=== PATIENT | female | born 1950 | race Caucasian/White ===

== ENCOUNTER 2019-10-16 08:57 | Outpatient (CLI) | payer OTHER, SELFPAY ==
--- NOTE | ~2019-10-16 | US_ITS ---
EXAMINATION: US renal BI EXAM DATE: 10/16/2019 11:18 INDICATION: Uncontrolled hypertension. TECHNIQUE: Multiple grayscale and Doppler images of the kidneys were obtained (by a technologist who performed the scan) and subsequently reviewed. There is no prior study for comparison. FINDINGS: Right kidney: There is normal contour and echogenicity. Measurement obtained not likely accurate due to inclusion of perinephric hypoechoic region which is probably perinephric fat surrounding mildly at rophic kidney. There are no focal renal lesions identified. There is no hydronephrosis. Left kidney: There is normal contour and echogenicity. It measures 13.4 x 5.9 x 5.4 centimeters. Th ere are no focal renal lesions identified. There is no hydronephrosis. Bladder unremarkable. IMPRESSION: 1. Mild right renal atrophy. Reviewed, dictated and finalized at location B.
--- NOTE | ~2019-10-16 | US_ITS ---
EXAMINATION: US retroperitoneal duplex ltd EXAM DATE: 10/16/2019 11:18 INDICATION: Uncontrolled hypertension. TECHNIQUE: Multiple grayscale and Doppler images of the kidneys and renal arteries were obtained. T here is no prior study for comparison. FINDINGS: The aorta peak systolic velocity is 47 cm/s. The right renal artery peak systolic velocity is 47 cm/s in the proximal segment, mid and distal aspects not visualized . The left renal artery peak systolic velocity is 102 cm/s in the distal segment, other segments not visualized. IMPRESSION: Some limitations from single measurement obtained in each renal artery, but both well wit hin normal limits. Reviewed, dictated and finalized at location B. IMPRESSION: Some limitations from single measurement obtained in each renal art cailin, but both well within normal limits.
== END 2019-10-16 08:58 | disposition home or self-care (01) ==
PROVIDERS: Visit Provider Internal Medicine Cardiovascular Disease
DX: E11.59 Type 2 diabetes mellitus with other circulatory complications (principal); I10 Essential (primary) hypertension; N26.1 Atrophy of kidney (terminal)
CPT/HCPCS: 76775; 93976

== ENCOUNTER 2022-02-23 14:13 | Outpatient (CLI) | payer OTHER, SELFPAY ==
--- NOTE | ~2022-02-23 | US_ITS ---
EXAMINATION: US art doppler w axel REAL DATE: 02/23/2022 15:33 INDICATION: Coronary artery disease of [place] artery of the heart. Claudication. TECHNIQUE: Segmental pressures and plethysmographic and Doppler waveforms of the brachial and lower e xtremity arteries were obtained. COMPARISON: None. FINDINGS: Right and left brachial artery pressures of 154 mm Hg and 169 mm Hg, respectively, are concordant (no rmal difference <= 30 mmHg). The right high thigh pressure index is 1.12 (normal > 1.2). The right ankle-brachial index (CHRIS) and right lower extremity segmental pressure gradients unable to be obtained due to inability to occlude the vessels distal to the high right thigh. The right great toe-brachial index (TBI) is 0.44 (normal >= 0.6-0.8). Arterial waveforms are biphasic with brisk systolic upstrokes throughout the arteries of the right lower limb. The left high thigh pressure index, left ankle-brachial index and segmental pressure gradients are al so unable to be obtained due to inability to occlude the vessels throughout the left lower limb. The left TBI is 0.74. Arterial waveforms are biphasic with brisk systolic upstrokes throughout the arteri es of the left lower limb. IMPRESSION: 1. 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 2. No significant arterial occlusive disease to the left lower limb with normal left TBI. Reviewed, dictated and finalized at location B. IMPRESSION: 1. Mild arterial occlusive disease to the right lower limb with mildly decrease d right TBI. 2. No significant arterial occlusive disease to the left lower limb with normal left TBI.
== END 2022-02-23 14:14 | disposition home or self-care (01) ==
PROVIDERS: Visit Provider Internal Medicine Cardiovascular Disease
DX: I73.9 Peripheral vascular disease, unspecified (principal); I25.118 Atherosclerotic heart disease of native coronary artery with other forms of angina pectoris
CPT/HCPCS: 93923

== ENCOUNTER 2022-10-01 13:12 | Outpatient (CLI) | payer OTHER, SELFPAY ==
--- NOTE | ~2022-10-01 | US_ITS ---
EXAMINATION: US carotid duplex BI DATE: 10/01/2022 17:11 INDICATION: Carotid bruits TECHNIQUE: Grayscale, color Doppler, and pulsed Doppler images of the cervical carotid arteries were obtained. The degree of vessel stenosis is placed in one of the following categories: normal, <50%, 5 0-69%, >=70% but less than near-occlusion, near-occlusion, or total occlusion. Note that percent sten osis relative to normal distal artery lumen diameter is indirectly measured from velocity measurement s as described by Jose David, et al. Radiology 2003; 229:340-346. Notes: Normal: Peak systolic velocity <125 centimeters/sec and no plaque <50%. Peak systolic velocity <125 ( EDV <40; ICA/CCA PSV ratio <2.0; used these factors only a tandem lesions or low cardiac output or co ntralateral disease) 50-69 %: PSV 125-230 (EDV 40-100; ratio 2-4) >= 70% but less than near occlusion: PSV greater than 230 (EDV > 100; ratio> 4.0) Near Occlusion: PSV that is variable; markedly narrowed lumen Occlusion: Absent flow on color/spectral Doppler and no lumen on wiggins scale. COMPARISON: None. FINDINGS: RIGHT: The right common carotid artery (CCA) peak systolic velocity (PSV) is 103 cm/s. The right internal ca rotid artery (ICA) PSV is 100 cm/s. The right ICA end-diastolic velocity (EDV) is 11 cm/s. The right ICA/CCA PSV ratio is 1.0. The external carotid artery (ECA) PSV is 227 cm/s. There is antegrade flow in the right vertebral artery. LEFT: The left CCA PSV is 112 cm/s. The left ICA PSV is 82 cm/s. The left ICA EDV is 16 cm/s. The left ICA/ CCA PSV ratio is 0.7. The ECA PSV is 217 cm/s. There is antegrade flow in the left vertebral artery. IMPRESSION: 1. Less than 50% stenosis in the right internal carotid artery by sonographic criteria. 2. Less than 50% stenosis in the left internal carotid artery by sonographic criteria. Reviewed, dictated and finalized at location L. IMPRESSION: 1. Less than 50% stenosis in the right internal carotid artery by sonographic carey whiteside. 2. Less than 50% stenosis in the left internal carotid artery by sonographic suad villatoro.
== END 2022-10-01 13:13 | disposition home or self-care (01) ==
PROVIDERS: Visit Provider Internal Medicine Cardiovascular Disease
DX: I65.23 Occlusion and stenosis of bilateral carotid arteries (principal); R09.89 Other specified symptoms and signs involving the circulatory and respiratory systems
CPT/HCPCS: 93880

== ENCOUNTER 2022-12-05 01:53 | Day surgery (SDC) | payer OTHER, SELFPAY ==
[2022-12-04 17:00] VITALS: BMI 43.1
[2022-12-05 07:52] VITALS: BP 140/54; PULSE 63; RESP 16; TEMP 36.4; O2SAT 96; BMI 43.1
--- NOTE | 2022-12-05 08:52 | WPDHPUPDATE1 ---
History and Physical Update Update Date/Time: 12/05/22 08:52 History and Physical has been reviewed, including an updated exam of the patient. There are NO changes in the patient's condition. Risks, benefits, and alternatives have been discussed and questions answered. Patient agrees to proceed with procedure.
[2022-12-05 08:55] VITALS: BP 141/48; PULSE 56; RESP 16; O2SAT 95
[2022-12-05 09:00] VITALS: BP 150/57; PULSE 57; RESP 16; O2SAT 97
[2022-12-05 09:05] VITALS: BP 152/59; PULSE 63; RESP 16; O2SAT 95
[2022-12-05 09:10] VITALS: BP 159/62; PULSE 68; RESP 18; O2SAT 95
--- NOTE | 2022-12-05 09:15 | P.OP_ITS ---
Procedure Note - Detailed Date of Procedure 12/05/22 Pre-op Diagnosis syncope Post-op Diagnosis Same Procedure Performed LOOP RECORDER IMPLANTATION Surgeon Mike Puentes MD Coremaking Machine Operator N/A Anesthesia Local Indications Recurrent syncope Findings Brief History of Present Illness: Patient is a very pleasant 71-year-old female with a past medical history significant for CAD with multiple prior stents and myocardial infarction, type 2 diabetes mellitus, hypertension, hyperlipidemia with recurrent unexplained syncope for which external digital watch assembler did not reveal significant tachy-jaspal arrhythmias nor did she have recurrent syncope during that time subsequently referred for loop recorder implantation for further evaluation. Description of Procedure After verbal and written informed consent was obtained from the patient risks, benefits, and alternatives explained in detail the patient agreed to proceed with the plan of care as outlined above. Patient was evaluated at bedside in the [facility] procedure room. Patient was placed the appropriate supine position. Left anterior chest wall was prepped and draped in the usual sterile fashion. Operators in appropriate sterile garb. The left 4th intercostal space was identified and marked. Utilizing approximately 30 cc of 1% subcutaneous lidocaine the left anterior chest wall was then locally anesthetized. After local anesthesia was achieved, 2 fingerbreadths left of the sternum at the 4th intercostal space was again identified and a 1 cm incision was made with the included skin punch tool. Following this with the included introducer, a tract was made subcutaneously at a 45 degree angle from the sternum. The introducer was then inverted 180 degrees and with the included plunger the Medtronic REVEAL LINQ II loop recorder was advanced subcutaneously into position easily and without complication. The plunger was then removed followed by the introducer. Manual pressure was held for least 5-10 min with excellent hemostasis. The device was then interrogated and revealed good fidelity with no under sensing and measured at 0.3 mV. The Medtronic REVEAL LINQ II SN [id number] was implanted without complication. The incision was then approximated and closed using Exofin skin adhesive. The incision was then covered with a sterile dressing. Complications: None Implants Medtronic LINQ II serial number [id number] Estimated Blood Loss 0 Complications None Condition Stable Disposition Same day
--- NOTE | 2022-12-05 10:16 | SUR.PHASEII ---
Discharge instructions talked over with pt and spouse. 1 week incision check scheduled. patient left via personal vehicle @[phone]
== END 2022-12-05 09:55 | disposition home or self-care (01) ==
PROVIDERS: Visit Provider Internal Medicine Cardiovascular Disease
PROC: (CPT 33285; principal; 2022-12-05 08:30)
DX: R55 Syncope and collapse (principal)
CPT/HCPCS: 33285; C1764

== ENCOUNTER 2023-07-08 01:13 | Day surgery (SDC) | payer OTHER, SELFPAY ==
[2023-07-05 15:33] VITALS: BMI 42.0
--- NOTE | 2023-07-05 16:10 | PC.NURSE ---
MADE DR. REYEZ AWARE OF PT'S HX OF IOHEXOL ALLERGY (HIVES AFTER RECEIVING CONTRAST DURING CT SCAN); OFFICE NURSE NOTIFIED BY HIM. CONTRAST PRE TREATMENT WITH PREDNISONE AND BENADRYL ORDERED AND CALLED IN TO PT'S PHARMACY ON RECORD BY OFFICE NURSE. PT. NOTIFIED OF NEW ORDERS FOR CONTRAST PRETREATMENT TO START AT 13 HOURS PRIOR TO PPM PROCEDURE TIME. PT. VOICES UNDERSTANDING.
[2023-07-08] VITALS (19 sets, daily range): BP systolic 110–168; BP diastolic 54–86; PULSE 62–77; RESP 12–20; TEMP 36.1–37.3; O2SAT 92–96; BMI 41.9
--- NOTE | ~2023-07-08 | XR_ITS ---
EXAMINATION: XR chest 2V DATE: 07/09/2023 12:38 INDICATION: 24 hour postpacemaker insertion TECHNIQUE: frontal and lateral views of the chest were obtained. COMPARISON: Chest radiograph dated 07/08/2023 FINDINGS: No interval change in position of the newly placed dual lead pacemakerright facet seen with leads pro jecting over the expected locations of the right atrium and right ventricle. Mild linear discoid atel ectasis/scarring at the left costophrenic angle. Lungs are otherwise clear with no other airspace opa cities, pulmonary edema, pleural effusion or pneumothorax. The cardiomediastinal silhouette is normal . Left pectoral implantable monitoring engineer. Mild thoracic spondylosis with bridging osteophytes at m ultiple levels consistent with diffuse idiopathic skeletal hyperostosis (DISH). Lower cervical anteri or spinal fusion with interbody fusion device and anterior plate and screw fixation at what is likely C5-C6. IMPRESSION: 1. Mild discoid atelectasis/scarring at the left costophrenic angle. No other acute cardiopulmonary d isease. Reviewed, dictated and finalized at location A. IMPRESSION: 1. Mild discoid atelectasis/scarring at the left costophrenic angle. No other a cute cardiopulmonary disease.
--- NOTE | ~2023-07-08 | XR_ITS ---
Portable chest x-ray Comparison: None Clinical History: Pacemaker placement Findings: Lungs are clear, without focal consolidation or pleural effusion. No pneumothorax. Cardio mediastinal silhouette is unremarkable, with pacemaker device and loop recorder present. Bones and so ft tissues are unremarkable. Impression: Clear lungs. Pacemaker device and probable loop recorder in place. Reviewed, dictated and finalized at location M. Impression: Clear lungs. Pacemaker device and probable loop recorder in place.
--- NOTE | 2023-07-08 07:00 | ECG_ITS ---
Measurements Intervals [place] Rate: 65 P: 80 WV: 215 QRS: 63 QRSD: 82 T: 7 QT: 422 QTc: 440 Interpretive Statements SINUS RHYTHM WITH FIRST DEGREE AV BLOCK BORDERLINE ST-T WAVE ABNORMALITY- INFERIOR LEADS BASELINE ARTIFACT- I, III, AVR, AVL, AVF, V5-V6 BORDERLINE ECG NO PREVIOUS ECG AVAILABLE FOR COMPARISON Electronically Signed On 07-08-2023 8:12:58 CDT by Juan Palma D.O.
[2023-07-08 07:52] LABS: Basophils Percent Auto 0.2 % (0.2-1.2); Eosinophils Percent Auto 0.1 % (0-4.4); Hematocrit 39.1 % (37.0-47.0); Hemoglobin 12.3 g/dL (12.0-15.0); Immature Granulocyte Absolute 0.04 K/mm3 (0.00-0.031); Immature Granulocyte Percent A 0.4 % (0-0.5); Lymphocytes Absolute Auto 0.64 K/mm3 (0.9-3.2); Lymphocytes Percent Auto 6.5 % (18.3-44.2); Mean Corpuscular HGB Conc 31.5 g/dl (32-36); Mean Corpuscular Hemoglobin 27.8 pg (26-34); Mean Corpuscular Volume 88.5 fl (80-100); Mean Platelet Volume 10.8 fl (7.4-10.4); Monocytes Absolute Auto 0.1 K/mm3 (0.1-0.6); Monocytes Percent Auto 0.6 % (2.6-8.5); Neutrophils Absolute Auto 9.1 K/mm3 (1.3-6.7); Neutrophils Percent Auto 92.2 % (45.5-73.1); Platelet Count Result 235 k/mm3 (150-375); Red Blood Count 4.42 M/mm3 (4.2-5.4); Red Cell Distribution Width 15.3 % (11.5-14.5); White Blood Count 9.8 K/mm3 (4.5-10.0)
--- NOTE | 2023-07-08 07:54 | SUR.PREOP ---
0750: FINAL DOSE OF PREDNISONE 50MG AND BENADRYL 50MG PO TAKEN BY PT. ORDERED PRE MEDS. PT. BROUGHT DOSES IN FROM HOME. STATES TOOK PRE DOSES OF PREDNISONE 50MG AT 13 HOURS BEFORE AND 7 HOURS BEFORE TIME OF PACEMAKER PROCEDURE.
[2023-07-08 08:01] LABS: Anion Gap 8 mmol/L (8-16); Blood Urea Nitrogen 27 mg/dL (7-17); Carbon Dioxide 26 mmol/L (22-30); Chloride 106 mmol/L (98-107); Estimated CRCL calculation 58 ml/min; Estimated Glomerular Filt Rate > 60; Glucose 315 mg/dL (65-110); Potassium 4.3 mmol/L (3.4-5.0); Sodium 140 mmol/L (137-145)
[2023-07-08 08:08] LABS: INR 1.1; Prothrombin Time 14.3 Seconds (11.1-14.7)
--- NOTE | 2023-07-08 09:05 | WPDMODSED ---
Moderate Sedation Note-Pt Data Patient Data Diagnosis: Intermittent high-grade AV block with syncope coronary artery disease Present Complaint: intermittent near-syncope Procedure to be performed/Plan: implantation of dual-chamber pacemaker Allergies Allergy/AdvReac Type Severity Reaction Status Date / Time codeine Allergy Nausea and Verified 07/08/23 08:36 Vomiting iohexol Allergy Hives Verified 07/08/23 08:36 [From contrast - CT, X-RAY] liraglutide Allergy Anaphylaxis Verified 07/08/23 08:36 Sulfa (Sulfonamide Allergy Hives Verified 07/08/23 08:36 Antibiotics) Home Medications Medication Instructions Recorded Confirmed Type acetaminophen 325 mg tablet 650 mg PO Q6H PRN Headache 12/04/22 07/05/23 History amlodipine 10 mg tablet 10 mg PO DAILY 12/04/22 07/08/23 History carvedilol 25 mg tablet 25 mg PO Q12H 12/04/22 07/08/23 History cholecalciferol (vitamin D3) 50 50 mcg PO DAILY 12/04/22 07/08/23 History mcg (2,000 unit) tablet clopidogrel 75 mg tablet 75 mg PO DAILY 12/04/22 07/08/23 History donepezil 10 mg tablet 5 mg PO HS 12/04/22 07/08/23 History empagliflozin 25 mg tablet 25 mg PO DAILY 12/04/22 07/08/23 History (Jardiance) epinephrine 0.3 mg/0.3 mL 0.3 mg IM ONCE PRN Anaphylaxis 12/04/22 07/05/23 History injection, auto-injector (EpiPen) famotidine 40 mg tablet 80 mg PO BID 12/04/22 07/08/23 History furosemide 40 mg tablet 40 mg PO DAILY 12/04/22 07/08/23 History insulin aspart See Rx Instructions .Route .COMPLEX 12/04/22 07/08/23 History (niacinamide)(U-100) 100 unit/mL(3 mL) subcutaneous pen (Fiasp FlexTouch U-100 Insulin) insulin glargine U-300 conc 300 48 unit subcut DAILY 12/04/22 07/08/23 History unit/mL (1.5 mL) subcutaneous pen (Toujeo SoloStar U-300 Insulin) isosorbide mononitrate 30 mg 30 mg PO DAILY 12/04/22 07/08/23 History tablet,extended release 24 hr isosorbide mononitrate 60 mg 60 mg PO DAILY 12/04/22 07/08/23 History tablet,extended release 24 hr levothyroxine 25 mcg tablet 25 mcg PO DAILY 12/04/22 07/08/23 History lisinopril 20 mg tablet 20 mg PO Q12H 12/04/22 07/08/23 History metformin 1,000 mg tablet 1,000 mg PO BID 12/04/22 07/08/23 History nitroglycerin 0.4 mg sublingual 0.4 mg sublingual Q5M PRN Chest 12/04/22 07/05/23 History tablet Pain potassium chloride 10 mEq 10 meq PO DAILY 12/04/22 07/08/23 History tablet,extended release(part/cryst) (Klor-Con M) ranolazine 1,000 mg 1,000 mg PO Q12H 12/04/22 07/08/23 History tablet,extended release,12 hr rosuvastatin 20 mg tablet 20 mg PO DAILY 12/04/22 07/08/23 History apixaban 5 mg tablet (Eliquis) 5 mg PO BID 07/05/23 07/05/23 History calcium carbonate 600 mg-vitamin 1 tablet PO BID 07/05/23 07/08/23 History D3 10 mcg (400 unit) tablet pregabalin 50 mg capsule 50 mg PO TID 07/05/23 07/08/23 History Sedation/Anesthesia: No previous sedation/anesthesia problems (including family history). PMFSH Social History Social History Smoking packs per day: 0.5 Smoking cigarettes per day: 10.0 Smoking status: Former smoker Tobacco type: cigarettes Second hand tobacco smoke exposure: No Alcohol intake: unknown Substance use: never Substance use type: does not use Living arrangements: with family Additional living arrangements comments: LIVES W/ Spiritual care concerns: No Mod Sed Physical Exam Physical Exam Pre Procedural Exam: Normal: Neck, Throat, Airway, Lungs, Heart Rate, Heart Rhythm, Neuro Exam and Extremities and Variation: Appearance ( obese white female in no distress) and Heart Size ( PMI not palpable) Hours since solid foods: 12 Hours since liquid intake: 12 Mallampati Classification: class III Internal Medicine - PN: Obj Da Vital Signs Vital Signs: Vital Signs - 24 hr 07/08/23 07:38 Temperature 36.1 C L Pulse Rate 66 Respiratory Rate 17 Blood Pressure 165/58 H Pulse Oximetry 96 Oxygen Delivery Room Air Labs 06/20
--- NOTE | 2023-07-08 10:35 | ECG_ITS ---
Measurements Intervals [place] Rate: 67 P: 65 [place]: 218 QRS: 54 QRSD: 93 T: 0 QT: 400 QTc: 423 Interpretive Statements SINUS RHYTHM WITH FIRST DEGREE AV BLOCK LOW QRS VOLTAGE IN PRECORDIAL LEADS CANNOT RULE OUT SEPTAL INFARCT, AGE INDETERMINATE BORDERLINE ST-T WAVE ABNORMALITY- INFERIOR LEADS BASELINE ARTIFACT- V3 ABNORMAL ECG COMPARED TO ECG 07/08/2023 07:54:31 NO SIGNIFICANT CHANGES Electronically Signed On 07-08-2023 13:04:41 CDT by Juan Palma D.O.
--- NOTE | 2023-07-08 10:37 | WPDCARDPROC ---
Cardiac Cath Procedure Note Date of procedure:: 07/08/23 Performing physician:: Delroy Todd MD Indication:: symptomatic bradycardia with intermittent high-grade AV block paroxysmal atrial fibrillation coronary artery disease Brief clinical history:: this is a 72-year-old woman with a previous history of episodes of near syncope who was found to have intermittent high-grade AV block on a Medtronic LINQ recorder that has been implanted last year. She also has a history of coronary artery disease recently underwent stenting of her circumflex. She is therefore on dual anti-platelet therapy which cannot be interrupted. Because of the symptomatic bradycardia implantation of a permanent pacemaker has been recommended and scheduled for this morning. Procedure Procedure performed:: Implantation of permanent Medtronic dual-chamber pacemaker device Sedation/Medication given:: fentanyl 50 mg Versed 4 mg Access site:: left subclavian vein Estimated blood loss:: 25 cc Procedure note:: patient was brought to the cardiac catheterization lab in the postabsorptive state the left anterior chest wall was prepped and draped in the usual sterile fashion. Anesthesia was infiltrated with 20 cc of like a cane about 1 in below the clavicle. An incision was then made from the midclavicular line to the deltopectoral groove and electrocautery was used to provide cutaneous hemostasis. The using sharp and blunt dissection the subcutaneous fat was dissected and the prepectoral fascia was identified. Using blunt dissection a pacemaker pocket was created inferior to the fascial plane. This pocket was then packed with antibiotic soaked 4 x 4. Following this attention was turned to venous access. Using the modified Seldinger technique and the save she hits the subclavian vein was punctured twice and the J wires were passed under fluoroscopic visualization to the level of the right atrium. Using 2 6 [place] SafeSheath the pacemaker leads detailed below within advanced into the venous circulation to the level of the right atrium. Attention was then turned ventricular lead. Withdrew the stylet and formed a J-tip stylet using a 3 cc syringe and uses to steer the lead for the right ventricle out to the pulmonary artery position. A straight stylet was placed back into it was withdrawn and placed into the right ventricular apex. The fixation screw was deployed and after this the lead was tested using the analyzer with good pacing and sensing performance being demonstrated. Attention was then turned to the atrial lead. The straight stylet was withdrawn and a preformed atrial J stylet was used to position the lead in right atrial appendage. On the 1st 2 occasions the lead would not stay in the appendage in fell down into the inferior atrium. On the 3rd deployment it stated position however pacing and sensing not felt to be satisfactory. For that reason I manually fashioned a hockey-stick shaped stylet and directed the lead into the lateral wall of the atrium. The lead was placed in a somewhat inferior position in the lateral wall and upon deployment of the screw was fixed into position. Pacing and sensing performance was felt to be adequate and this was accepted as the atrial lead position. The leads were then secured to the base of the pocket using suture sleeves and 2-0 silk ties. The retained sponge was then removed and the pocket was irrigated with antibiotic infused saline. The generator was connected to the newly implanted lead using the torque wrench and the entire assembly was placed into the newly created pocket this was then closed in layers using 3-0 Vicryl in an interrupted fashion for the subcutaneous tissue and 4-0 Vicryl in a running subcuticular fashion for skin. The site was cleansed and an Aquacel dressing was applied. a pressure dressing was then advanced to the site as the patient is on dual anti-platelet therapy and the left arm was placed in
--- NOTE | 2023-07-08 11:52 | SUR.PHASEII ---
END PHASE II RECOVERY. PT. TO ENTER EXTENDED RECOVERY AFTER OUTPATIENT IMPLANTATION OF NEW PERMANENT PACEMAKER W/ DR. REYEZ. PT. TO COMPLETE STAY IMU OBSERVATION STATUS. REMAINS IN CLOTH SHRINKER 3 AT THIS TIME IMU OVERFLOW STATUS. SEE PCS FOR FURTHER DOCUMENTATION.
--- NOTE | 2023-07-08 11:53 | ADMGEN ---
This patient, Lauryn Duarte, was admitted to observation IMU status after outpatient implantation of permanent pacemaker with Dr. Todd. Remains in BIOLOGY TUTOR 3 now as IMU obs overflow. Patient/family oriented to hospital policies and general routines including ID bracelet, bed and alarms, visiting hours, pain management, procedures, bathroom and other care routines, personal items, smoking policy, room service/diet, and visiting hours. See Phase II recovery for previous documentation. Information on how to activate the Rapid Response Team has been discussed. Patient/Family are encouraged to report perceived risks to care and to ask questions if they do not understand what they are told or what they should do.
[2023-07-08] MEDS: SODIUM CHLORIDE 0.9% IV 1,000 ML 50 ML IV CONT (13:32)
[2023-07-08] MEDS: ceFAZolin 2 GM/D5W 50 ML 2 GM/50 ML BAG IVPB ×2 (16:34→23:39)
[2023-07-08] MEDS: CALCIUM/VITAMIN D 500 MG/5 MCG (200 I.U.) TABLET PO (16:35)
[2023-07-08] MEDS: PREGABALIN (*CRX) 50 MG CAPSULE PO ×2 (16:37→20:40)
[2023-07-08 17:05] LABS: Glucose Point of Care 398 mg/dl (65-105)
[2023-07-08] MEDS: INSULIN ASPART (*BKC) 100 UNITS/ML 14 UNITS SUB-Q (17:12)
[2023-07-08] MEDS: metFORMIN HCL 500 MG TABLET 1000 MG PO (17:18)
--- NOTE | 2023-07-08 18:05 | PC.NURSE ---
REPORT CALLED TO ROBERT DIMAS IN IMU. PT. IS TO TRANSFER TO IMU 214.1 VIA BED TO COMPLETE OBS STAY POST NEW IMPLANT OF PERMANENT PACEMAKER. PT AND FAMILY AWARE.
--- NOTE | 2023-07-08 18:10 | PC.NURSE ---
TRANSFERRED VIA BED ON MONITOR TO 214.1 WITH ALL PERSONAL BELONGINGS AND SON AT BEDSIDE. NO NEW CHANGES NOTED. ATE SUPPER. VOICES NO C/O. VSS. ARM IMMOBILIZER ON L. ARM. GREETED BY TAVIA DIMAS ON ARRIVAL.
[2023-07-08] MEDS: lisinopriL 20 MG TABLET PO (20:40)
[2023-07-08] MEDS: carvediloL 25 MG TABLET PO (20:40)
[2023-07-08] MEDS: FAMOTIDINE 20 MG TABLET PO (20:40)
[2023-07-08] MEDS: DONEPEZIL HCL 5 MG TABLET PO (20:40)
[2023-07-08] MEDS: RANOLAZINE 500 MG TAB.ER.12H 1000 MG PO (20:41)
[2023-07-08 21:05] LABS: Glucose Point of Care 284 mg/dl (65-105)
[2023-07-09] VITALS (12 sets, daily range): BP systolic 123–164; BP diastolic 59–98; PULSE 60–76; RESP 18–20; TEMP 35.8–36.2; O2SAT 95–98
[2023-07-09] MEDS: LEVOTHYROXINE SODIUM 25 MCG TABLET PO (05:20)
[2023-07-09 07:18] LABS: Glucose Point of Care 194 mg/dl (65-105)
[2023-07-09] MEDS: ROSUVASTATIN 10 MG TABLET 20 MG PO (08:59)
[2023-07-09] MEDS: ISOSORBIDE MONONITRATE 30 MG TAB.ER.24H 90 MG PO (08:59)
[2023-07-09] MEDS: CHOLECALCIFEROL 1,000 UNITS TABLET 2000 UNITS PO (08:59)
[2023-07-09] MEDS: RANOLAZINE 500 MG TAB.ER.12H 1000 MG PO (08:59)
[2023-07-09] MEDS: amLODIPine BESYLATE 5 MG TABLET 10 MG PO (08:59)
[2023-07-09] MEDS: lisinopriL 20 MG TABLET PO (09:00)
[2023-07-09] MEDS: POTASSIUM CHLORIDE 10 MEQ ER TABLET PO (09:00)
[2023-07-09] MEDS: carvediloL 25 MG TABLET PO (09:00)
[2023-07-09] MEDS: CALCIUM/VITAMIN D 500 MG/5 MCG (200 I.U.) TABLET PO (09:00)
[2023-07-09] MEDS: EMPAGLIFLOZIN 25 MG TABLET PO (09:00)
[2023-07-09] MEDS: metFORMIN HCL 500 MG TABLET 1000 MG PO (09:00)
[2023-07-09] MEDS: FUROSEMIDE 40 MG TABLET PO (09:00)
[2023-07-09] MEDS: FAMOTIDINE 20 MG TABLET PO (09:00)
[2023-07-09] MEDS: INSULIN GLARGINE (*BKC) 100 UNITS/ML 38 UNITS SUB-Q (09:01)
[2023-07-09] MEDS: PREGABALIN (*CRX) 50 MG CAPSULE PO ×2 (09:05→12:22)
[2023-07-09] MEDS: INSULIN ASPART (*BKC) 100 UNITS/ML 16 UNITS SUB-Q (09:05)
--- NOTE | 2023-07-09 11:19 | PM.DS ---
DS: Admitting Diagnosis Discharge Date 07/09/23 Admitting Diagnosis Syncope, high degree AVB DS: Discharge Diagnosis Discharge Diagnosis (1) Presence of cardiac pacemaker: Code(s): Z95.0 - Presence of cardiac pacemaker Status: Acute Assessment and Plan: s/p Medtronic dual chamber pacemaker placement. Pacemaker with normal function. -Pacemaker restrictions reviewed -Incision and device check in the office in one week -CXR clear, no pneumo -OK for discharge today. DS: Summary Hospital Course Hospital Course: Admitted for overnight observation following permanent pacemaker implantation yesterday. She had no complications post procedure and is doing well today. Pacemaker functioning normally and chest Xray clear with no pneumothorax. Stable and appropriate for discharge today after overnight observation following pacemaker implantation. Time Spent with Patient Time attestation: Total time spent providing and/or coordinating discharge services: Exam Const: General: comfortable, no acute distress, alert and awake Orientation/consciousness: patient oriented x3 HENMT: Head: normal to inspection Eyes: General: appearance normal, both eyes and all related structures Pupils: Equal, round and reactive pupils present Neck: Neck: normal visual inspection, supple and no JVD Carotids: normal carotid upstroke Resp: Effort & Inspection: normal respiratory effort Auscultation: clear to auscultation bilaterally Other: Left pectoral incision remains covered with sterile dressing. No drainage. Small amount of ecchymosis extending to axilla. No hematoma. Cardio: Rate: regular rate Rhythm: regular rhythm Heart sounds: S1 normal heart sound present, S2 normal heart sound present and no murmurs GI: Auscultation: normal bowel sounds Skin: General skin exam: normal color Neuro: General: patient oriented x3 Cranial nerves: Yes Equal, round and reactive pupils present Extrem: General: normal to inspection Psych: Appearance: grossly normal Mental Status: mental status grossly normal DS: Data Data Completed and Pending Labs on day of discharge: Labs from last 24 hours 07/09/23 07/08/23 07/08/23 07:15 21:03 17:02 POC Capillary Glucose 194 H 284 H 398 H Discharge Plan Discharge Patient Disposition: Home, Self-Care Discharge Instructions: [facility] [address] [place] [address] DISCHARGE INSTRUCTIONS - POST PACEMAKER Activity 1. No driving until you are seen in the office for your incision check. 2. No lifting, pushing or pulling more than 5 pounds with affected arm for 1 MONTH 3. No lifting affected arm above shoulder height for 1 MONTH 4. Wear immobilizer/sling only if you are unable to remember the above activity restrictions. Recommend that it be worn at night. 5. You may shower AFTER you are seen for incision check but no tub baths, swimming pool or hot tub for 1MONTH Wound Care 1. Do not attempt to remove the Aquacel dressing. Leave dressing undisturbed until incision check at the office visit. Keep dressing dry. 2. When you are able to shower AFTER you are seen for your incision check in the office do not rub or scrub the incision. Pat dry after shower. NO lotions, powders, creams or ointments are to be applied to the incision 3. A small amount of tenderness, puffiness and bruising around the site is normal. Call if any significant pain, drainage, swelling, or redness
[2023-07-09 12:14] LABS: Glucose Point of Care 172 mg/dl (65-105)
[2023-07-09] MEDS: INSULIN ASPART (*BKC) 100 UNITS/ML 8 UNITS SUB-Q (12:26)
== END 2023-07-09 14:15 | disposition home or self-care (01) ==
LOC: ANHCATHLAB 10:42 → ANHIMU 19:34
PROVIDERS: Visit Provider Specialist
PROC: 0JH606Z Insertion of Pacemaker, Dual Chamber into Chest Subcutaneous Tissue and Fascia, Open Approach (ICD-10-PCS; CPT 33208; principal; 2023-07-08 08:30)
DX: I44.2 Atrioventricular block, complete (principal); I48.0 Paroxysmal atrial fibrillation; I25.118 Atherosclerotic heart disease of native coronary artery with other forms of angina pectoris; J98.11 Atelectasis; I11.0 Hypertensive heart disease with heart failure; I50.32 Chronic diastolic (congestive) heart failure; K21.9 Gastro-esophageal reflux disease without esophagitis; E03.9 Hypothyroidism, unspecified; G47.30 Sleep apnea, unspecified; E11.9 Type 2 diabetes mellitus without complications; Z79.01 Long term (current) use of anticoagulants; Z79.02 Long term (current) use of antithrombotics/antiplatelets; Z79.4 Long term (current) use of insulin; Z79.84 Long term (current) use of oral hypoglycemic drugs; Z99.89 Dependence on other enabling machines and devices; Z98.1 Arthrodesis status; Z90.49 Acquired absence of other specified parts of digestive tract; Z95.5 Presence of coronary angioplasty implant and graft; Z87.891 Personal history of nicotine dependence
CPT/HCPCS: 33208; 36415; 71045; 71046; 80048; 82948; 85025; 85610; 93005; A9270; C1779; C1785; J0690; J1815; J2250; J3010; J7030; J7040

== ENCOUNTER 2024-04-08 21:58 | Emergency (ER) | payer OTHER, SELFPAY ==
--- NOTE | ~2024-04-08 | US_ITS ---
EXAMINATION: US venous doppler [facility] DATE: 04/09/2024 19:07 INDICATION: Lower limb swelling. TECHNIQUE: Grayscale ultrasound images without and with compression and Doppler ultrasound images of the bilateral lower extremity veins were obtained. COMPARISON: None. FINDINGS: The visualized portions of right common femoral vein, profunda (deep) femoral vein, femoral vein, pop liteal vein, peroneal veins, posterior tibial veins, and greater saphenous vein outflow are patent. The visualized portions of left common femoral vein, profunda femoral vein, femoral vein, popliteal v ein, peroneal veins, posterior tibial veins, and greater saphenous vein outflow are patent. IMPRESSION: 1. No deep venous thrombosis. Reviewed, dictated and finalized at location A. ANCE EDUCATION COORDINATOR
--- NOTE | ~2024-04-08 | CT_ITS ---
EXAMINATION:CT diagnostic chest wo con DATE: 04/08/2024 23:17 INDICATION: Hypoxia. TECHNIQUE: Computed tomography (CT) of the chest was performed without intravenous contrast. Automate d exposure control and iterative reconstruction technique were employed. The dose-length product (DLP ) was 631.97 mGy-cm. COMPARISON: Chest single view 04/08/2024 FINDINGS: The lungs demonstrate mild atelectasis. There are mild airspace opacities in left lower lob e. No pleural effusion. The heart size is normal. There are coronary artery calcifications. No perica rdial effusion. There is a left chest wall pacer with leads in the right atrium and right ventricle. There is a subcutaneous electronic implant in left anterior chest wall. There are changes of cholecys tectomy. There are changes of anterior fusion procedure in cervical spine. 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 IMPRESSION: 1. Mild airspace opacities in left lung lower lobe, consistent with atelectasis versus pneumonia. Reviewed, dictated and finalized at location A. ANICAL MANUFACTURING TECHNICIAN
--- NOTE | ~2024-04-08 | XR_ITS ---
EXAMINATION: XR chest 1V portable DATE: 04/08/2024 22:50 INDICATION: Hypoxia. TECHNIQUE: A single frontal view of the chest was obtained. COMPARISON: Chest 2 views 07/09/2023 FINDINGS: The patient is rotated to her left. There is no pneumonia, pleural effusion, or pneumothora x. The heart size is normal. There is a left chest wall pacer with leads in the right atrium and righ t ventricle. There are changes of anterior fusion procedure in cervical spine. There is an electronic implant in left anterior chest wall. IMPRESSION: 1. No acute cardiopulmonary disease. Reviewed, dictated and finalized at location A. K TRIMMER
[2024-04-08 22:02] VITALS: BP 146/51; PULSE 94; RESP 16; TEMP 36.1; O2SAT 95
--- NOTE | 2024-04-08 22:35 | ECG_ITS ---
Test Date: 2024-04-08 23:45:12 Measurements Intervals [place] Rate: 66 P: -38 [place]: 188 QRS: 69 QRSD: 89 T: 11 QT: 395 QTc: 415 Interpretive Statements SINUS RHYTHM No previous ECG available for comparison Electronically Signed On 04-09-2024 15:56:41 INTERPRETER DEAF by Karel Medel M.D.
[2024-04-08 22:56] LABS: Basophils Percent Auto 0.2 % (0.2-1.2); Eosinophils Absolute Auto 0.5 K/mm3 (0-0.3); Eosinophils Percent Auto 5.4 % (0-4.4); Hematocrit 35.5 % (37.0-47.0); Hemoglobin 11.2 g/dL (12.0-15.0); Immature Granulocyte Absolute 0.02 K/mm3 (0.00-0.031); Immature Granulocyte Percent A 0.2 % (0-0.5); Lymphocytes Absolute Auto 1.25 K/mm3 (0.9-3.2); Lymphocytes Percent Auto 13.7 % (18.3-44.2); Mean Corpuscular HGB Conc 31.5 g/dl (32-36); Mean Corpuscular Hemoglobin 27.9 pg (26-34); Mean Corpuscular Volume 88.5 fl (80-100); Mean Platelet Volume 11.6 fl (7.4-10.4); Monocytes Absolute Auto 0.7 K/mm3 (0.1-0.6); Monocytes Percent Auto 7.8 % (2.6-8.5); Neutrophils Absolute Auto 6.6 K/mm3 (1.3-6.7); Neutrophils Percent Auto 72.7 % (45.5-73.1); Platelet Count Result 222 k/mm3 (150-375); Red Blood Count 4.01 M/mm3 (4.2-5.4); Red Cell Distribution Width 16.4 % (11.5-14.5); White Blood Count 9.1 K/mm3 (4.5-10.0)
[2024-04-08 23:03] LABS: Alveolar/Arterial O2 Gradient 52.8 mmHg; Base Excess ABG -2.2 mEq/l (+/-2.0); Fractional Inspired Oxygen 21 %; HCO3 ABG 22.4 mEq/l (22.0-26.0); Oxygen Content ABG 13.2 %vol (16.0-22.0); PCO2 ABG 38.2 mmHg (35.0-45.0); PO2 ABG 51.2 mmHg (80.0-100.0); PO2 FiO2 Ratio Arterial Blood 2.44 %; pH ABG 7.387 (7.350-7.450)
[2024-04-08 23:05] LABS: Modified Allen's Test Pass; Oxyhemoglobin 85.6 % THb (90.0-100.0); Site Drawn RIGHT RADIAL
[2024-04-08 23:06] LABS: Device ROOM AIR
[2024-04-08 23:07] LABS: Alanine Aminotransferase 18 U/L (6-35); Albumin Level 3.5 g/dL (3.5-5.1); Alkaline Phosphatase 53 U/L (38-126); Anion Gap 5 mmol/L (4-12); Aspartate Amino Transferase 25 U/L (14-36); Bilirubin,Total 0.4 mg/dL (0.2-1.3); Blood Urea Nitrogen 52 mg/dL (7-17); Calcium 9.2 mg/dL (8.4-10.2); Carbon Dioxide 27 mmol/L (22-30); Chloride 101 mmol/L (98-107); Estimated CRCL calculation 43 ml/min; Estimated Glomerular Filt Rate 44; Glucose 236 mg/dL (65-110); Lactic Acid Reflex 1.7 mmol/L (0.7-2.0); Lipase 78 U/L (23-300); Magnesium 2.3 mg/dL (1.6-2.3); Phosphorus 2.7 mg/dL (2.5-4.5); Potassium 4.8 mmol/L (3.4-5.0); Sodium 133 mmol/L (137-145)
[2024-04-08] MEDS: SODIUM CHLORIDE 0.9% IV 1,000 ML 999 ML IV CONT (23:07)
[2024-04-08 23:19] LABS: INR 1.2; Prothrombin Time 15.6 Seconds (11.1-14.7)
[2024-04-08 23:20] LABS: Partial Thromboplastin Time 31.9 Seconds (22.3-36.8)
[2024-04-08 23:22] LABS: NT Pro B Type Natriuretic Pept 1000 pg/mL (19.9-100); Troponin I 0.105 ng/mL (0.000-0.034)
[2024-04-08 23:32] LABS: Influenza A QL RT-PCR Negative (Negative); Influenza B QL RT-PCR Negative (Negative); RSV RNA, RT-PCR Negative (Negative); SARS-CoV-2 RNA PCR Negative (Negative)
[2024-04-09] VITALS (26 sets, daily range): BP systolic 103–176; BP diastolic 50–94; PULSE 65–85; RESP 12–25; TEMP 36.4; O2SAT 89–99
--- NOTE | 2024-04-09 00:49 | ED_ITS ---
HPI - General Adult General Chief complaint: Recheck/Abnormal Lab/Rx <Hiro Vickers MD - Last Filed: 04/09/24 06:19> Stated complaint: Low pulse ox , lethargic <Hiro Vickers MD - Last Filed: 04/09/24 06:19> Time Seen by Provider: 04/08/24 22:35 <Hiro Vickers MD - Last Filed: 04/09/24 06:19> History of Present Illness HPI narrative: This is a 73-year-old female presenting POD 2 from a total right knee replacement presenting for weakness and shortness of breath. Patient's family has been monitoring her pulse ox at home and has been in the mid 80s. Brought her to the ED for evaluation. She is denying fevers, chills, productive cough, chest pain, abdominal pain or urinary symptoms. patient held her Eliquis 3 days before the surgery and has taken 2.5 mg dose since the surgery. <Hiro Vickers MD - Last Filed: 04/09/24 06:19> Related Data Home medications: Home Medications ?Medication ?Instructions ?Recorded ?Confirmed ?Last Taken ?Type acetaminophen 325 mg tablet 650 mg PO Q6H PRN Headache 12/04/22 07/05/23 Unknown History amlodipine 10 mg tablet 10 mg PO DAILY 12/04/22 07/08/23 07/07/23 History carvedilol 25 mg tablet 25 mg PO Q12H 12/04/22 07/08/23 07/07/23 History cholecalciferol (vitamin D3) 50 50 mcg PO DAILY 12/04/22 07/08/23 07/07/23 History mcg (2,000 unit) tablet clopidogrel 75 mg tablet 75 mg PO DAILY 12/04/22 07/08/23 07/07/23 History donepezil 10 mg tablet 5 mg PO HS 12/04/22 07/08/23 07/07/23 History empagliflozin 25 mg tablet 25 mg PO DAILY 12/04/22 07/08/23 07/07/23 History (Jardiance) epinephrine 0.3 mg/0.3 mL 0.3 mg IM ONCE PRN Anaphylaxis 12/04/22 07/05/23 Unknown History injection, auto-injector (EpiPen) famotidine 40 mg tablet 40 mg PO BID 12/04/22 07/08/23 07/07/23 History furosemide 40 mg tablet 40 mg PO DAILY 12/04/22 07/08/23 07/07/23 History insulin aspart See Rx Instructions .Route .COMPLEX 12/04/22 07/08/23 07/07/23 History (niacinamide)(U-100) 100 unit/mL(3 mL) subcutaneous pen (Fiasp FlexTouch U-100 Insulin) insulin glargine U-300 conc 300 48 unit subcut DAILY 12/04/22 07/08/23 07/07/23 History unit/mL (1.5 mL) subcutaneous pen (Toujeo SoloStar U-300 Insulin) isosorbide mononitrate 30 mg 30 mg PO DAILY 12/04/22 07/08/23 07/07/23 History tablet,extended release 24 hr isosorbide mononitrate 60 mg 60 mg PO DAILY 12/04/22 07/08/23 07/07/23 History tablet,extended release 24 hr levothyroxine 25 mcg tablet 25 mcg PO DAILY 12/04/22 07/08/23 07/07/23 History lisinopril 20 mg tablet 20 mg PO Q12H 12/04/22 07/08/23 07/07/23 History metformin 1,000 mg tablet 1,000 mg PO BID 12/04/22 07/08/23 07/07/23 History nitroglycerin 0.4 mg sublingual 0.4 mg sublingual Q5M PRN Chest 12/04/22 07/05/23 Unknown History tablet Pain potassium chloride 10 mEq 10 meq PO DAILY 12/04/22 07/08/23 07/07/23 History tablet,extended release(part/cryst) (Klor-Con M) ranolazine 1,000 mg 1,000 mg PO Q12H 12/04/22 07/08/23 07/07/23 History tablet,extended release,12 hr rosuvastatin 20 mg tablet 20 mg PO DAILY 12/04/22 07/08/23 07/07/23 History apixaban 5 mg tablet (Eliquis) 5 mg PO BID 07/05/23 07/05/23 07/05/23 History calcium 600 mg (as 1 tablet PO BID 07/05/23 07/08/23 07/07/23 History carbonate)-vitamin D3 10 mcg (400 unit) tablet pregabalin 50 mg capsule 50 mg PO TID 07/05/23 07/08/23 07/07/23 History <Hiro Vickers MD - Last Filed: 04/09/24 06:19> Allergies/adverse reactions: Allergies Allergy/AdvReac Type Severity Reaction Status Date / Time iohexol (From contrast - CT, Allergy Hives Verified 04/09/24 08:10 X-RAY) liraglutide Allergy Anaphylaxis Verified 04/09/24 08:10 Sulfa (Sulfonamide Allergy Hives Verified 04/09/24 08:10 Antibiotics) codeine AdvReac Nausea and Verified 04/09/24 08:10 Vomiting <Hiro Vickers MD - Last Filed: 04/09/24 06:19> [facility] Family History Family History: Family History (Updated 07/08/23 @ 20:37 by Prudence Lutz RN) Other Unknown family medical history <Hiro Vickers MD - Last Filed: 04/09/24 06:19> Social History Social History: Social History Smoking packs per day: 0.5 Smoking cigarettes per day: 10.0 Years smoked: 8 Smoking pack-years: 4.00 Smoking status: Former smoker Tobacco type: cigarettes Second hand tobacco smoke exposure: No Alcohol intake: unknown Substance use: never Substance use type: does not use Living arrangements: with family Additional living arrangements comments: LIVES W/ Spiritual care concerns: No <Hiro Vickers MD - Last Filed: 04/09/24 06:19> Exam 2 Narrative: APPEARANCE: No apparent distress. Head: atraumatic. EYES: EOMI, NOSE: Atraumatic NECK: Trachea midline RESPIRATORY: hypoxic on room air, very mild crackles the bases otherwise clear CARDIOVASCULAR: no peripheral edema ABDOMINAL: Non-distended soft nontender MUSCULOSKELETAl: focal exam the right knee showed clean dry intact dressings w/o any cellulitic changes. NEURO: Alert. Moving 4/4 extremities SKIN:: Warm, dry. Normal color PSYCHIATRIC: Normal affect <Hiro Vickers MD - Last Filed: 04/09/24 06:19> Course Course Emergency Course: [place] 0700: Signed out pending transfer. Last update from [facility] is they were expecting beds to open at shiftchange around 7am. <Hiro Vickers MD - Last Filed: 04/09/24 06:19> A[place] 0700: Signed out pending transfer. Last update from [facility] is they were expecting beds to open at shift change around 7am. 1840: No bed available at [facility]. I have ordered a V/Q scan to evaluate the lungs. Dr. Grossman has also called me and I have placed an order for ultrasound of the lower extremities. He would not recommend any blood thinning medication be given to the patient and last there is a definitive clot so as not to compromise the surgical site. He does not anticipate any surgery so she patient may eat. If there are any additional questions he can be contacted at [phone]. 1900: Patient now has a bed at [facility], awaiting room number and we will arrange transport. URIEL to Dr. Vickers. <Mark Pollard MD - Last Filed: 04/09/24 19:01> Vital Signs Vital signs: Vital Signs Temperature 97 F L 04/08/24 22:02 Pulse Rate 94 04/08/24 22:02 Respiratory Rate 16 04/08/24 22:02 Blood Pressure 146/51 H 04/08/24 22:02 Pulse Oximetry 95 04/08/24 22:02 Oxygen Delivery Room Air 04/08/24 22:02 Temperature 97.6 F 04/09/24 15:17 Pulse Rate 79 04/09/24 18:36 Respiratory Rate 22 H 04/09/24 18:36 Blood Pressure 174/62 H 04/09/24 18:36 Pulse Oximetry 98 04/09/24 18:36 Oxygen Delivery Nasal Cannula 04/09/24 00:24 Oxygen Flow Rate 2 04/09/24 08:08 Fraction of Inspired Oxygen 95 04/09/24 08:08 <Hiro Vickers MD - Last Filed: 04/09/24 06:19> Vital Signs Temperature 97 F L 04/08/24 22:02 Pulse Rate 94 04/08/24 22:02 Respiratory Rate 16 04/08/24 22:02 Blood Pressure 146/51 H 04/08/24 22:02 Pulse Oximetry 95 04/08/24 22:02 Oxygen Delivery Room Air 04/08/24 22:02 Temperature 97.6 F 04/09/24 15:17 Pulse Rate 79 04/09/24 18:36 Respiratory Rate 22 H 04/09/24 18:36 Blood Pressure 174/62 H 04/09/24 18:36 Pulse Oximetry 98 04/09/24 18:36 Oxygen Delivery Nasal Cannula 04/09/24 00:24 Oxygen Flow Rate 2 04/09/24 08:08 Fraction of Inspired Oxygen 95 04/09/24 08:08 <Mark Pollard MD - Last Filed: 04/09/24 19:01> Medical Decision Making MDM Narrative Medical decision making narrative: -Course: 73-year-old female presenting 2 days after total knee replacement with hypoxic respiratory failure. CT without contrast showed atelectasis versus infiltrates in the left lower lobe. No fevers or white count. she will be covered for pneumonia regardless. Lab works significant for BNP of 1000 and a troponin of 0.1. No EKG changes. Patient denies any history of CHF. Patient will be started on Lovenox as this could be due to pulmonary embolism. Patient cannot get a CT PE due IV contrast allergy. Patient was accepted at [facility] by Dr. Patel. patient will be transferred for further management. -DDX includes but is not limited to: pneumonia PE CHF viral syndrome -Independent interpretation of studies: labs and imaging reviewed Independent EKG interpretation: Rhythm [sinus], Rate [66], [place] -[normal], [place] -[normal], QRS [narrow], QTC [normal], T waves -[negative for concerning inversions], ST Segments - [Negative for concerning elevations] Final interpretations: [Normal Sinus Rhythm] -Discussion of Management/Consultants:NESS t/f Dr. Jorge eaton -[facility] -Shared decision making / Disposition:transferred/ <Hiro Vickers MD - Last Filed: 04/09/24 06:19> Vital Signs Vital Signs: Vital Signs Temperature 97 F L 04/08/24 22:02 Pulse Rate 94 04/08/24 22:02 Respiratory Rate 16 04/08/24 22:02 Blood Pressure 146/51 H 04/08/24 22:02 Pulse Oximetry 95 04/08/24 22:02 Oxygen Delivery Room Air 04/08/24 22:02 Temperature 97.6 F 04/09/24 15:17 Pulse Rate 79 04/09/24 18:36 Respiratory Rate 22 H 04/09/24 18:36 Blood Pressure 174/62 H 04/09/24 18:36 Pulse Oximetry 98 04/09/24 18:36 Oxygen Delivery Nasal Cannula 04/09/24 00:24 Oxygen Flow Rate 2 04/09/24 08:08 Fraction of Inspired Oxygen 95 04/09/24 08:08 <Hiro Vickers MD - Last Filed: 04/09/24 06:19> Vital Signs Temperature 97 F L 04/08/24 22:02 Pulse Rate 94 04/08/24 22:02 Respiratory Rate 16 04/08/24 22:02 Blood Pressure 146/51 H 04/08/24 22:02 Pulse Oximetry 95 04/08/24 22:02 Oxygen Delivery Room Air 04/08/24 22:02 Temperature 97.6 F 04/09/24 15:17 Pulse Rate 79 04/09/24 18:36 Respiratory Rate 22 H 04/09/24 18:36 Blood Pressure 174/62 H 04/09/24 18:36 Pulse Oximetry 98 04/09/24 18:36 Oxygen Delivery Nasal Cannula 04/09/24 00:24 Oxygen Flow Rate 2 04/09/24 08:08 Fraction of Inspired Oxygen 95 04/09/24 08:08 <Mark Pollard MD - Last Filed: 04/09/24 19:01> Lab Data Result diagrams: 04/08/24 22:45 04/08/24 22:45 <Hiro Vickers MD - Last Filed: 04/09/24 06:19> Labs: Lab Results 04/08/24 04/09/24 04/09/24 Range/Units 22:45 01:57 05:44 WBC 9.1 (4.5-10.0) K/mm3 RBC 4.01 L (4.2-5.4) M/mm3 Hgb 11.2 L (12.0-15.0) g/dL Hct 35.5 L (37.0-47.0) % MCV 88.5 (80-100) fl MCH 27.9 (26-34) pg MCHC 31.5 L (32-36) g/dl RDW 16.4 H (11.5-14.5) % Plt Count 222 (150-375) k/mm3 MPV 11.6 H (7.4-10.4) fl Immature Gran % (Auto) 0.2 (0-0.5) % Neut % (Auto) 72.7 (45.5-73.1) % Lymph % (Auto) 13.7 L (18.3-44.2) % [place] % (Auto) 7.8 (2.6-8.5) % Eos % (Auto) 5.4 H (0-4.4) % Baso % (Auto) 0.2 (0.2-1.2) % Lymph # (Auto) 1.25 (0.9-3.2) K/mm3 [place] # (Auto) 0.7 H (0.1-0.6) K/mm3 Eos # (Auto) 0.5 H (0-0.3) K/mm3 Baso # (Auto) 0.0 (0.0-0.1) K/mm3 Abs Immat Gran (auto) 0.02 (0.00-0.031) K/mm3 Absolute Neuts (auto) 6.6 (1.3-6.7) K/mm3 Absolute Nucleated RBC 0.000 (0.0-0.012) K/mm3 Nucleated RBC % 0.0 (0.0-0.2) % PT 15.6 H (11.1-14.7) Seconds INR 1.2 APTT 31.9 (22.3-36.8) Seconds Sodium 133 L (137-145) mmol/L Potassium 4.8 (3.4-5.0) mmol/L Chloride 101 (98-107) mmol/L Carbon Dioxide 27 (22-30) mmol/L Anion Gap 5 (4-12) mmol/L BUN 52 H D (7-17) mg/dL Creatinine 1.20 H (0.7-1.0) mg/dL Estim Creat Clear Calc 43 ml/min Estimated GFR 44 L (59 - ) Glucose 236 H (65-110) mg/dL POC Capillary Glucose (65-105) mg/dl Lactic Acid 1.7 (0.7-2.0) mmol/L Calcium 9.2 (8.4-10.2) mg/dL Phosphorus 2.7 (2.5-4.5) mg/dL Magnesium 2.3 (1.6-2.3) mg/dL Total Bilirubin 0.4 (0.2-1.3) mg/dL AST 25 (14-36) U/L ALT 18 (6-35) U/L Alkaline Phosphatase 53 (38-126) U/L Troponin I 0.105 H* 0.082 H* D (0.000-0.034) ng/mL NT-Pro-B Natriuret Pep 1000 H (19.9-100) pg/mL Total Protein 6.0 L (6.3-8.2) g/dL Albumin 3.5 (3.5-5.1) g/dL Lipase 78 (23-300) U/L TSH (Reflex) 1.930 (0.465-4.68) uIU/mL Urine Color Yellow (Yellow) Urine Appearance Clear (Clear) Urine pH 5.5 (5.0-9.0) Ur Specific [place] 1.019 (1.001-1.035) Urine Protein Negative (Negative) mg/dL Urine Glucose (UA) 3+ H (Negative) mg/dL Urine Ketones Negative (Negative) mg/dL Ur Blood (Man) 1+ H (Negative) Urine Nitrate Negative (Negative) Urine Bilirubin Negative (Negative) Urine Urobilinogen 0.2 (<2.0) mg/dL Leukocyte Esterase Rfl 2+ H (Negative) KANIKA/UL Urine RBC 0-2 (0-2) /hpf Urine WBC 51-100 H (0-3) /hpf Ur Squamous Epith Cells Occasional (Few) /hpf Urine Bacteria None seen /hpf Urine Casts 0-2 Influenza A (RT-PCR) Negative (Negative) Influenza B (RT-PCR) Negative (Negative) RSV (RT-PCR) Negative (Negative) SARS-CoV-2 RNA (RT-PCR) Negative (Negative) 04/09/24 Range/Units 10:41 WBC (4.5-10.0) K/mm3 RBC (4.2-5.4) M/mm3 Hgb (12.0-15.0) g/dL Hct (37.0-47.0) % MCV (80-100) fl MCH (26-34) pg MCHC (32-36) g/dl RDW (11.5-14.5) % Plt Count (150-375) k/mm3 MPV (7.4-10.4) fl Immature Gran % (Auto) (0-0.5) % Neut % (Auto) (45.5-73.1) % Lymph % (Auto) (18.3-44.2) % [place] % (Auto) (2.6-8.5) % Eos % (Auto) (0-4.4) % Baso % (Auto) (0.2-1.2) % Lymph # (Auto) (0.9-3.2) K/mm3 [place] # (Auto) (0.1-0.6) K/mm3 Eos # (Auto) (0-0.3) K/mm3 Baso # (Auto) (0.0-0.1) K/mm3 Abs Immat Gran (auto) (0.00-0.031) K/mm3 Absolute Neuts (auto) (1.3-6.7) K/mm3 Absolute Nucleated RBC (0.0-0.012) K/mm3 Nucleated RBC % (0.0-0.2) % PT (11.1-14.7) Seconds INR APTT (22.3-36.8) Seconds Sodium (137-145) mmol/L Potassium (3.4-5.0) mmol/L Chloride (98-107) mmol/L Carbon Dioxide (22-30) mmol/L Anion Gap (4-12) mmol/L BUN (7-17) mg/dL Creatinine (0.7-1.0) mg/dL Estim Creat Clear Calc ml/min Estimated GFR (59 - ) Glucose (65-110) mg/dL POC Capillary Glucose 162 H (65-105) mg/dl Lactic Acid (0.7-2.0) mmol/L Calcium (8.4-10.2) mg/dL Phosphorus (2.5-4.5) mg/dL Magnesium (1.6-2.3) mg/dL Total Bilirubin (0.2-1.3) mg/dL AST (14-36) U/L ALT (6-35) U/L Alkaline Phosphatase (38-126) U/L Troponin I (0.000-0.034) ng/mL NT-Pro-B Natriuret Pep (19.9-100) pg/mL Total Protein (6.3-8.2) g/dL Albumin (3.5-5.1) g/dL Lipase (23-300) U/L TSH (Reflex) (0.465-4.68) uIU/mL Urine Color (Yellow) Urine Appearance (Clear) Urine pH (5.0-9.0) Ur Specific [place] (1.001-1.035) Urine Protein (Negative) mg/dL Urine Glucose (UA) (Negative) mg/dL Urine Ketones (Negative) mg/dL Ur Blood (Man) (Negative) Urine Nitrate (Negative) Urine Bilirubin (Negative) Urine Urobilinogen (<2.0) mg/dL Leukocyte Esterase Rfl (Negative) KANIKA/UL Urine RBC (0-2) /hpf Urine WBC (0-3) /hpf Ur Squamous Epith Cells (Few) /hpf Urine Bacteria /hpf Urine Casts Influenza A (RT-PCR) (Negative) Influenza B (RT-PCR) (Negative) RSV (RT-PCR) (Negative) SARS-CoV-2 RNA (RT-PCR) (Negative) <Hiro Vickers MD - Last Filed: 04/09/24 06:19> Lab Results 04/08/24 04/09/24 04/09/24 Range/Units 22:45 01:57 05:44 WBC 9.1 (4.5-10.0) K/mm3 RBC 4.01 L (4.2-5.4) M/mm3 Hgb 11.2 L (12.0-15.0) g/dL Hct 35.5 L (37.0-47.0) % MCV 88.5 (80-100) fl MCH 27.9 (26-34) pg MCHC 31.5 L (32-36) g/dl RDW 16.4 H (11.5-14.5) % Plt Count 222 (150-375) k/mm3 MPV 11.6 H (7.4-10.4) fl Immature Gran % (Auto) 0.2 (0-0.5) % Neut % (Auto) 72.7 (45.5-73.1) % Lymph % (Auto) 13.7 L (18.3-44.2) % [place] % (Auto) 7.8 (2.6-8.5) % Eos % (Auto) 5.4 H (0-4.4) % Baso % (Auto) 0.2 (0.2-1.2) % Lymph # (Auto) 1.25 (0.9-3.2) K/mm3 [place] # (Auto) 0.7 H (0.1-0.6) K/mm3 Eos # (Auto) 0.5 H (0-0.3) K/mm3 Baso # (Auto) 0.0 (0.0-0.1) K/mm3 Abs Immat Gran (auto) 0.02 (0.00-0.031) K/mm3 Absolute Neuts (auto) 6.6 (1.3-6.7) K/mm3 Absolute Nucleated RBC 0.000 (0.0-0.012) K/mm3 Nucleated RBC % 0.0 (0.0-0.2) % PT 15.6 H (11.1-14.7) Seconds INR 1.2 APTT 31.9 (22.3-36.8) Seconds Sodium 133 L (137-145) mmol/L Potassium 4.8 (3.4-5.0) mmol/L Chloride 101 (98-107) mmol/L Carbon Dioxide 27 (22-30) mmol/L Anion Gap 5 (4-12) mmol/L BUN 52 H D (7-17) mg/dL Creatinine 1.20 H (0.7-1.0) mg/dL Estim Creat Clear Calc 43 ml/min Estimated GFR 44 L (59 - ) Glucose 236 H (65-110) mg/dL POC Capillary Glucose (65-105) mg/dl Lactic Acid 1.7 (0.7-2.0) mmol/L Calcium 9.2 (8.4-10.2) mg/dL Phosphorus 2.7 (2.5-4.5) mg/dL Magnesium 2.3 (1.6-2.3) mg/dL Total Bilirubin 0.4 (0.2-1.3) mg/dL AST 25 (14-36) U/L ALT 18 (6-35) U/L Alkaline Phosphatase 53 (38-126) U/L Troponin I 0.105 H* 0.082 H* D (0.000-0.034) ng/mL NT-Pro-B Natriuret Pep 1000 H (19.9-100) pg/mL Total Protein 6.0 L (6.3-8.2) g/dL Albumin 3.5 (3.5-5.1) g/dL Lipase 78 (23-300) U/L TSH (Reflex) 1.930 (0.465-4.68) uIU/mL Urine Color Yellow (Yellow) Urine Appearance Clear (Clear) Urine pH 5.5 (5.0-9.0) Ur Specific [place] 1.019 (1.001-1.035) Urine Protein Negative (Negative) mg/dL Urine Glucose (UA) 3+ H (Negative) mg/dL Urine Ketones Negative (Negative) mg/dL Ur Blood (Man) 1+ H (Negative) Urine Nitrate Negative (Negative) Urine Bilirubin Negative (Negative) Urine Urobilinogen 0.2 (<2.0) mg/dL Leukocyte Esterase Rfl 2+ H (Negative) KANIKA/UL Urine RBC 0-2 (0-2) /hpf Urine WBC 51-100 H (0-3) /hpf Ur Squamous Epith Cells Occasional (Few) /hpf Urine Bacteria None seen /hpf Urine Casts 0-2 Influenza A (RT-PCR) Negative (Negative) Influenza B (RT-PCR) Negative (Negative) RSV (RT-PCR) Negative (Negative) SARS-CoV-2 RNA (RT-PCR) Negative (Negative) 04/09/24 Range/Units 10:41 WBC (4.5-10.0) K/mm3 RBC (4.2-5.4) M/mm3 Hgb (12.0-15.0) g/dL Hct (37.0-47.0) % MCV (80-100) fl MCH (26-34) pg MCHC (32-36) g/dl RDW (11.5-14.5) % Plt Count (150-375) k/mm3 MPV (7.4-10.4) fl Immature Gran % (Auto) (0-0.5) % Neut % (Auto) (45.5-73.1) % Lymph % (Auto) (18.3-44.2) % [place] % (Auto) (2.6-8.5) % Eos % (Auto) (0-4.4) % Baso % (Auto) (0.2-1.2) % Lymph # (Auto) (0.9-3.2) K/mm3 [place] # (Auto) (0.1-0.6) K/mm3 Eos # (Auto) (0-0.3) K/mm3 Baso # (Auto) (0.0-0.1) K/mm3 Abs Immat Gran (auto) (0.00-0.031) K/mm3 Absolute Neuts (auto) (1.3-6.7) K/mm3 Absolute Nucleated RBC (0.0-0.012) K/mm3 Nucleated RBC % (0.0-0.2) % PT (11.1-14.7) Seconds INR APTT (22.3-36.8) Seconds Sodium (137-145) mmol/L Potassium (3.4-5.0) mmol/L Chloride (98-107) mmol/L Carbon Dioxide (22-30) mmol/L Anion Gap (4-12) mmol/L BUN (7-17) mg/dL Creatinine (0.7-1.0) mg/dL Estim Creat Clear Calc ml/min Estimated GFR (59 - ) Glucose (65-110) mg/dL POC Capillary Glucose 162 H (65-105) mg/dl Lactic Acid (0.7-2.0) mmol/L Calcium (8.4-10.2) mg/dL Phosphorus (2.5-4.5) mg/dL Magnesium (1.6-2.3) mg/dL Total Bilirubin (0.2-1.3) mg/dL AST (14-36) U/L ALT (6-35) U/L Alkaline Phosphatase (38-126) U/L Troponin I (0.000-0.034) ng/mL NT-Pro-B Natriuret Pep (19.9-100) pg/mL Total Protein (6.3-8.2) g/dL Albumin (3.5-5.1) g/dL Lipase (23-300) U/L TSH (Reflex) (0.465-4.68) uIU/mL Urine Color (Yellow) Urine Appearance (Clear) Urine pH (5.0-9.0) Ur Specific [place] (1.001-1.035) Urine Protein (Negative) mg/dL Urine Glucose (UA) (Negative) mg/dL Urine Ketones (Negative) mg/dL Ur Blood (Man) (Negative) Urine Nitrate (Negative) Urine Bilirubin (Negative) Urine Urobilinogen (<2.0) mg/dL Leukocyte Esterase Rfl (Negative) KANIKA/UL Urine RBC (0-2) /hpf Urine WBC (0-3) /hpf Ur Squamous Epith Cells (Few) /hpf Urine Bacteria /hpf Urine Casts Influenza A (RT-PCR) (Negative) Influenza B (RT-PCR) (Negative) RSV (RT-PCR) (Negative) SARS-CoV-2 RNA (RT-PCR) (Negative) <Mark Pollard MD - Last Filed: 04/09/24 19:01> ABG Data ABG results: 04/08/24 22:55 Puncture Site Right radial ABG pH 7.387 ABG pCO2 38.2 ABG pO2 51.2 L ABG PO2/FiO2 Ratio 2.44 ABG HCO3 22.4 ABG O2 Saturation 86.0 L* ABG O2 Content 13.2 L ABG Base Excess -2.2 A-a Gradient 52.8 Oxyhemoglobin 85.6 L* Total Hemoglobin 11.0 L O2 Delivery Device Room air O2 Liters/Min Not Reportable FiO2 21 <Hiro Vickers MD - Last Filed: 04/09/24 06:19> 04/08/24 22:55 Puncture Site Right radial ABG pH 7.387 ABG pCO2 38.2 ABG pO2 51.2 L ABG PO2/FiO2 Ratio 2.44 ABG HCO3 22.4 ABG O2 Saturation 86.0 L* ABG O2 Content 13.2 L ABG Base Excess -2.2 A-a Gradient 52.8 Oxyhemoglobin 85.6 L* Total Hemoglobin 11.0 L O2 Delivery Device Room air O2 Liters/Min Not Reportable FiO2 21 <Mark Pollard MD - Last Filed: 04/09/24 19:01> Critical Care Time Critical Care Time Critical Care Time: Yes <Hiro Vickers MD - Last Filed: 04/09/24 06:19> Total Critical Care Time: 35 <Hiro Vickers MD - Last Filed: 04/09/24 06:19> Discharge Plan Discharge Clinical Impression: Acute hypoxic respiratory failure <Hiro Vickers MD - Last Filed: 04/09/24 06:19> Patient Disposition: [facility] <Hiro Vickers MD - Last Filed: 04/09/24 06:19> Condition: Guarded Prognosis <Hiro Vickers MD - Last Filed: 04/09/24 06:19> Patient Language: Mauritanian <Hiro Vickers MD - Last Filed: 04/09/24 06:19> Prescriptions: No Action furosemide 40 mg tablet 40 mg PO DAILY carvedilol 25 mg tablet 25 mg PO Q12H donepezil 10 mg tablet 5 mg PO HS lisinopril 20 mg tablet 20 mg PO Q12H Patient Comments: STATES TAKES 20MG PO BID. isosorbide mononitrate 30 mg tablet extended release 24 hr 30 mg PO DAILY Rx Instructions: TAKES WITH 60MG DOSE TO = 90MG DAILY. clopidogrel 75 mg tablet 75 mg PO DAILY levothyroxine 25 mcg tablet 25 mcg PO DAILY isosorbide mononitrate 60 mg tablet extended release 24 hr 60 mg PO DAILY Rx Instructions: TAKES WITH 30MG DOSE TO = 90MG DAILY amlodipine 10 mg tablet 10 mg PO DAILY metformin 1,000 mg tablet 1,000 mg PO BID Rx Instructions: WITH MORNING AND EVENING MEAL. rosuvastatin 20 mg tablet 20 mg PO DAILY potassium chloride [Klor-Con M10] 10 mEq tablet,ER particles/crystals 10 meq PO DAILY Rx Instructions: WITH FOOD ranolazine 1,000 mg tablet extended release 12 hr 1,000 mg PO Q12H Jardiance 25 mg tablet 25 mg PO DAILY insulin glargine U-300 conc [Toujeo SoloStar U-300 Insulin] 300 unit/mL (1.5 mL) insulin pen 48 unit SUBCUT DAILY Rx Instructions: takes every am. Fiasp FlexTouch U-100 Insulin 100 unit/mL (3 mL) insulin pen See Rx Instructions .ROUTE .COMPLEX Patient Comments: OF 07/05/23, PT TAKES 16 UNITS SQ AT BREAKFAST AND LUNCH, AND 14 UNITS AT DINNER. Rx Instructions: OF 07/05/23, PT TAKES 16 UNITS SQ AT BREAKFAST AND LUNCH, AND 14 UNITS AT DINNER. famotidine 40 mg Tablet 40 mg PO BID acetaminophen 325 mg Tablet 650 mg PO Q6H PRN (Reason: Headache) nitroglycerin 0.4 mg Tablet, Sublingual 0.4 mg SUBLINGUAL Q5M PRN (Reason: Chest Pain) Rx Instructions: MAY REPEAT EVERY 5 MINUTES, do not exceed 3 doses per episode epinephrine [EpiPen] 0.3 mg/0.3 mL Auto-Injector 0.3 mg IM ONCE PRN (Reason: Anaphylaxis) Rx Instructions: as a single dose; may repeat once cholecalciferol (vitamin D3) 50 mcg (2,000 unit) Tablet 50 mcg PO DAILY pregabalin 50 mg capsule 50 mg PO TID Rx Instructions: breakfast, lunch, bedtime. calcium carbonate-vitamin D3 600 mg-10 mcg (400 unit) tablet 1 tablet PO BID Eliquis 5 mg tablet 5 mg PO BID <Hiro Vickers MD - Last Filed: 04/09/24 06:19> Follow-up/Referrals: Lety,Emmanuel Bell MD [Primary Care Provider] - <Hiro Vickers MD - Last Filed: 04/09/24 06:19>
[2024-04-09] MEDS: ENOXAPARIN 100 MG/ML SYRINGE SUB-Q (01:24)
[2024-04-09] MEDS: AZITHROMYCIN 500 MG/NS 250 ML 500 MG/250 ML BAG 250 MG IVPB (01:24)
[2024-04-09 02:26] LABS: Troponin I 0.082 ng/mL (0.000-0.034)
[2024-04-09] MEDS: LACTATED RINGERS 1,000 ML 75 ML IV CONT ×2 (02:45→16:21)
[2024-04-09 06:28] LABS: Add Urine Microscopic? YES; Appearance Urine Clear (Clear); Bacteria Urine None Seen /hpf; Bilirubin Urine Negative (Negative); Blood Urine 1+ (Negative); Color Urine Yellow (Yellow); Glucose Urine UA 3+ mg/dL (Negative); Ketones Urine Negative (Negative); Leukocyte Esterase Ur 2+ LEU/UL (Negative); Nitrate Urine Negative (Negative); Non Pathogenic Casts 0-2; Protein Urine Negative (Negative); RBC Urine 0-2 /hpf (0-2); Specific Grav Ur 1.019 (1.001-1.035); Squamous Epithelial Cell Urine Occasional /hpf (Few); Urobilinogen Urine 0.2 mg/dL (<2.0); WBC Urine 51-100 /hpf (0-3); pH Urine 5.5 (5.0-9.0)
--- NOTE | 2024-04-09 07:15 | PC.NURSE ---
Assumed care of pt
[2024-04-09 10:44] LABS: Glucose Point of Care 162 mg/dl (65-105)
--- NOTE | 2024-04-09 11:56 | PC.NURSE ---
[facility] transfer line called. At this time pt doesn't have a bed assigned. Waiting for a bed at [facility]
[2024-04-09] MEDS: ACETAMINOPHEN 325 MG TABLET 650 MG PO (17:00)
--- NOTE | 2024-04-09 17:09 | PC.NURSE ---
RN spoke with Sudha at [facility] pt logistics and gave update regarding pt status. Sudha stated that the pt was still awaiting a bed to become available at [facility] and that they would call when one became available
--- NOTE | 2024-04-09 18:46 | PC.NURSE ---
Pt moved to private room and is currently resting in hospital bed
--- NOTE | 2024-04-09 19:20 | PC.NURSE ---
RN spoke with Debbie at [facility] pt transfer center who stated the pt has received a bed. Pt will be going to room 508 at [facility]. Debbie stated that the room was not yet clean but when it is, the number for report is
== END 2024-04-09 20:55 | disposition short-term general hospital (02) ==
PROVIDERS: Emergency Provider Emergency Medicine; PCP Internal Medicine
DX: J95.821 Acute postprocedural respiratory failure (principal); Z20.822 Contact with and (suspected) exposure to COVID-19; Z96.651 Presence of right artificial knee joint; Z87.891 Personal history of nicotine dependence; Z79.84 Long term (current) use of oral hypoglycemic drugs; Z79.02 Long term (current) use of antithrombotics/antiplatelets; Z79.01 Long term (current) use of anticoagulants; Z79.4 Long term (current) use of insulin; Z79.899 Other long term (current) drug therapy
CPT/HCPCS: 36415; 36600; 71045; 71250; 80053; 81001; 82805; 82948; 83605; 83690; 83735; 83880; 84100; 84443; 84484; 85018; 85025; 85610; 85730; 87040; 87086; 87637; 93005; 93970; 96361; 96365; 96366; 96367; 96372; 99291; A9270; J0456; J0696; J1650; J7030; J7120